=== PATIENT | male | born 1995 | race Caucasian/White ===

== ENCOUNTER 2025-03-20 15:51 | Emergency (ER) | payer MEDICAID ==
[~2025-03-20] VITALS: Ht 172.7 cm; Wt 81.0 kg
[2025-03-20 15:57] VITALS: O2SAT 100
[2025-03-20 17:28] LABS: BASOPHILS % 0.6 % (0.0-2.0); EOSINOPHILS % 1.3 % (0.0-5.0); HEMATOCRIT. 42.5 % (42.0-52.0); HEMOGLOBIN. 14.0 g/dL (14.0-18.0); LYMPHOCYTES % 64.0 % (20.0-50.0); MEAN PLATELET VOLUME 8.3 fl (7.4-10.4); MONOCYTES % 6.6 % (2.0-8.0); NEUTROPHILS % 27.5 % (40.0-76.0); PLATELET 223 x1000/uL (130-400); RED BLOOD CELL COUNT 4.65 mill/uL (4.7-6.1); RED CELL DISTRIBUTION WIDTH 13.3 % (11.6-14.6)
[2025-03-20 17:42] LABS: TROPONIN I HIGH SENSITIVITY < 4 ng/L (3.0-53)
[2025-03-20 17:43] LABS: CREATININE 0.8 mg/dL (0.6-1.3)
[2025-03-20 17:44] LABS: UREA NITROGEN BLOOD 7 mg/dL (9-23)
[2025-03-20 17:45] LABS: ASPARTATE AMINOTRANSFERASE 22 IU/L (<34)
[2025-03-20 17:46] LABS: BILIRUBIN DIRECT 0.1 mg/dL (<=3.0); BILIRUBIN TOTAL 0.2 mg/dL (0.1-1.0); PROTEIN TOTAL 6.9 g/dL (6.0-8.3)
[2025-03-20 18:56] LABS: TROPONIN I HIGH SENSITIVITY 4 ng/L (3.0-53)
[2025-03-20 20:21] VITALS: BP 115/82; PULSE 74; RESP 12; TEMP 36.8; O2SAT 100
== END 2025-03-20 20:27 | disposition home or self-care (01) ==
LOC: ER 15:51
DX: R07.89 Other chest pain (principal)
CPT/HCPCS: 36415; 71045; 80048; 80076; 84484; 85025; 93005; 99285